=== PATIENT | female | born 1970 | race Caucasian/White ===

== ENCOUNTER 2022-05-31 20:01 | Inpatient (IN) | payer OTHER ==
[2022-05-31] MEDS ORDERED: SODIUM CHLORIDE 0.9% 1,000 ML IV STA (20:12)
--- NOTE | 2022-05-31 20:12 | ED ---
Chest Pain HPI - General Chief Complaint: Chest Pain Stated Complaint: Chest pain Time Seen by Provider: 05/31/22 20:12 Source: patient Mode of arrival: ambulatory Limitations: no limitations - Related Data Home Medications Medication Instructions Recorded Confirmed Hydrocodone/Acetaminophen [[place] 1 each PO Q6H PRN 03/30/14 08/20/15 10-325] Aspirin 162 mg PO DAILY 04/19/14 08/20/15 Baclofen [Lioresal] 04/19/14 08/20/15 Gabapentin [Neurontin] 800 mg PO TID 04/19/14 08/20/15 Ibuprofen [Motrin] 800 mg PO Q6HR PRN 04/19/14 08/20/15 traMADol HCL [Ultram ER] 100 mg PO DAILY 04/19/14 08/20/15 cloNIDine HCL [Catapres] 0.1 mg PO BID 02/09/15 08/20/15 LORazepam [Ativan] 2 mg PO BID 08/20/15 08/20/15 Previous Rx's Medication Instructions Recorded Albuterol Inhaler [Ventolin Hfa 2 puff INHALATION Q4HR PRN #1 04/19/14 Inhaler] inhaler Albuterol Inhaler [Ventolin Hfa 1 - 2 puff INHALATION Q4-6H PRN #1 02/09/15 Inhaler] inhaler Amoxicillin/Potassium Clav 1 each PO Q12HR #20 tab 02/09/15 [Augmentin 875-125 Tablet] Fluticasone Propionate [Flonase 1 - 2 spray EA NOSTRIL DAILY 5 02/09/15 Allergy Relief] Days ml Loratadine [Claritin] 10 mg PO DAILY 20 Days tab 02/09/15 Promethazine HCl/Codeine 5 ml PO Q6HR 10 Days syrup 02/09/15 [Promethazine-Codeine Syrup] Ibuprofen [Motrin] 600 mg PO Q6HR PRN #30 tab 08/20/15 Allergies Allergy/AdvReac Type Severity Reaction Status Date / Time phenazopyridine HCl Allergy Rash/Hives Verified 05/31/22 20:04 [From Pyridium] sulfamethoxazole Allergy Rash/Hives Verified 05/31/22 20:04 [From Bactrim] trimethoprim [From Bactrim] Allergy Rash/Hives Verified 05/31/22 20:04 Review of Systems ROS Statement: Those systems with pertinent positive or pertinent negative responses have been documented in the HPI. ROS Other: All systems not noted in ROS Statement are negative. EKG Findings - EKG Comments: EKG Findings:: EKG is sinus rhythm 71 TN 136 QRS 90 QTC 400 Past Medical History Past Medical History: Fibromyalgia, Hypertension, Seizure Disorder Additional Past Medical History / Comment(s): chronic neck and back pain History of Any Multi-Drug Resistant Organisms: None Reported Past Surgical History: Back Surgery Additional Past Surgical History / Comment(s): LAPAROSCOPY TO REMOVE CYST FROM OVARIES. LEEP OR CONE PROCEDURE Past Anesthesia/Blood Transfusion Reactions: No Reported Reaction Past Psychological History: Anxiety Smoking Status: Current every day smoker Past Alcohol Use History: None Reported Past Drug Use History: None Reported General Exam Limitations: no limitations Course Vital Signs 05/31/22 20:02 Temperature 98.1 F Pulse Rate 64 Respiratory 18 Rate Blood Pressure 184/98 O2 Sat by Pulse 100 Oximetry Disposition Clinical Impression: Chest pain Disposition: ADMITTED IP TO THIS [facility] Condition: Undetermined Instructions (If sedation given, give patient instructions): Chest Pain (ED) Is patient prescribed a controlled substance at d/c from ED?: No Referrals: Laila Mohr DO [Primary Care Provider] - 1-2 days
[2022-05-31 20:57] LABS: Basophils # (A) 0.1 k/uL (0-0.2); Basophils % (A) 1 %; Eosinophils # (A) 0.5 k/uL (0-0.7); Eosinophils % (A) 5 %; HCT 37.4 % (34.0-46.0); HGB 12.6 gm/dL (11.4-16.0); Lymphocytes # (A) 3.7 k/uL (1.0-4.8); Lymphocytes % (A) 39 %; MCH 32.8 pg (25.0-35.0); MCHC 33.8 g/dL (31.0-37.0); MCV 97.1 fL (80.0-100.0); Mean Platelet Volume 8.4; Monocytes # (A) 0.4 k/uL (0-1.0); Monocytes % (A) 4 %; Neutrophils # (A) 4.6 k/uL (1.3-7.7); Neutrophils % (A) 50 %; Platelet Count 420 k/uL (150-450); RBC 3.85 m/uL (3.80-5.40); WBC 9.4 k/uL (3.8-10.6)
[2022-05-31 21:11] LABS: Partial Thromboplastin Time 24.4 sec (22.0-30.0); Prothrombin Time 10.6 sec (9.0-12.0)
[2022-05-31 21:14] LABS: ALT 14 U/L (4-34); AST 22 U/L (14-36); African American GFR (CKD) >90 (>60 ml/min/1.73 sqM); Albumin 4.7 g/dL (3.5-5.0); Alkaline Phosphatase 85 U/L (38-126); Anion Gap 10 mmol/L; Blood Urea Nitrogen 20 mg/dL (7-17); Calcium 9.6 mg/dL (8.4-10.2); Carbon Dioxide 21 mmol/L (22-30); Chloride 110 mmol/L (98-107); Glucose 127 mg/dL (74-99); Lipase 35 U/L (23-300); Magnesium 1.8 mg/dL (1.6-2.3); Non-African American GFR(CKD) >90 (>60 ml/min/1.73 sqM); Potassium 3.5 mmol/L (3.5-5.1); Sodium 141 mmol/L (137-145); Total Bilirubin 0.3 mg/dL (0.2-1.3); Total Protein 7.6 g/dL (6.3-8.2)
--- NOTE | 2022-05-31 21:14 | XR ---
EXAMINATION TYPE: XR chest 1V portable DATE OF EXAM: 05/31/2022 COMPARISON: 04/19/2014 HISTORY: Chest pain TECHNIQUE: FINDINGS: Heart and mediastinum are normal. Lungs are clear. Diaphragm is normal. Bony thorax appears normal. There are chest leads. IMPRESSION: No active cardiopulmonary disease. No change.
[2022-05-31] MEDS ORDERED: NITROGLYCERIN SL TABS 0.4 MG TAB SUBLINGUAL PRN (21:45)
[2022-05-31] MEDS ORDERED: ASPIRIN 81 MG PO STA (21:45)
[2022-05-31] MEDS ORDERED: NALOXONE 0.4 MG/ML 1 ML VIAL IV PRN (21:45)
[2022-05-31] MEDS ORDERED: ONDANSETRON 4 MG/2 ML VIAL IVP PRN (21:45)
[2022-05-31] MEDS ORDERED: HEPARIN SOD,PORK IN 0.45% NACL 25,000 UNIT in 0.45% NACL 1 250ML.BAG IV SCH (21:45)
[2022-05-31] MEDS ORDERED: HEPARIN SODIUM 1,000 UN/ML (10ML VL) IV ONE (21:48)
[2022-05-31] MEDS ORDERED: MORPHINE SULFATE 4 MG/ML SYRINGE IVP STA (21:56)
[2022-05-31] MEDS: MORPHINE SULFATE 4 MG/ML SYRINGE IV PRN (22:07)
[2022-05-31] MEDS: SODIUM CHLORIDE 0.9% 1,000 ML IV SCH (22:23)
[2022-06-01] MEDS: MORPHINE SULFATE 4 MG/ML SYRINGE IV PRN ×4 (02:34→16:08)
[2022-06-01] MEDS ORDERED: HEPARIN SODIUM 1,000 UN/ML (10ML VL) IV PRN (06:16)
[2022-06-01] MEDS ORDERED: ASPIRIN 325 MG TAB PO SCH (09:00)
[2022-06-01 09:28] LABS: Chol/HDL Ratio 4.45 Ratio; LDL Cholesterol,Calculated 68.1 mg/dL (0.0-131.0)
--- NOTE | 2022-06-01 10:25 | P.CRDCN ---
History of Present Illness History of present illness: HISTORY OF PRESENTING ILLNESS Patient is pleasant 51-year-old female with history of tobacco abuse, seizures, hyperlipidemia, family history of CAD, fibromyalgia and back pains who presents secondary to episodes of chest pain over the last week. Patient states that chest pains have been intermittent and have been associated with being more active and associated with some diaphoresis and lightheadedness. She also however has a different more sharp chest pain which has been fairly constant since coming to emergency department and currently 2 out of 3 and reproducible on exam. She has been concerned as her brother who is 52 had an AK recently. She had prior stress test approximately 5-10 years ago where she had IV apparently dobutamine and had a seizure from this. EKG shows normal sinus rhythm, normal axis, no significant ST or T-wave abnormalities. D-dimer noted to be normal, troponins normal 3, proBNP 251, triglycerides 307 total cholesterol 167 LDL 68, VLDL 61, HDL 37. She was placed on a heparin drip however still having 2-3 reproducible chest pain. REVIEW OF SYSTEMS At the time of my exam: CONSTITUTIONAL: Denies fever or chills. CARDIOVASCULAR: +chest pain, +shortness of breath, no orthopnea, PND or palpitations. RESPIRATORY: Denies cough. GASTROINTESTINAL: Denies abdominal pain, diarrhea, constipation, nausea or vomiting. MUSCULOSKELETAL: Denies myalgias. NEUROLOGIC: Denies numbness, tingling or weakness. ENDOCRINE: Denies fatigue, weight change, polydipsia or polyurina. GENITOURINARY: Denies burning, hematuria or urgency with micturation. HEMATOLOGIC: Denies history of anemia or bleeding. PHYSICAL EXAMINATION Vital signs reviewed. CONSTITUTIONAL: No apparent distress. HEENT: Head is normocephalic. Pupils are equal, round. Sclerae anicteric. Mucous membranes of the mouth are moist. No JVD. No carotid bruit. CHEST EXAMINATION: Lungs are clear to auscultation. +sharp chest pain reproducible however other chest pain not HEART EXAMINATION: Regular rate and rhythm. S1, S2 heard. No murmurs, gallops or rub. ABDOMEN: Soft, nontender. Positive bowel sounds. EXTREMITIES: 2+ peripheral pulses, no lower extremity edema and no calf tenderness. NEUROLOGIC EXAMINATION: Patient is awake, alert and oriented x3. ASSESSMENT 1. 2 different types of chest pain, one being reproducible and musculoskeletal however other associated with diaphoresis and lightheadedness and worse with exertion more concerning for possible angina 2. Tobacco abuse 3. Family history of CAD 4. Hyperlipidemia, mainly VLDL elevated 5. History of seizures, apparent seizure with dobutamine. PLAN Discussed options of stress testing and patient is agreeable. Patient's current chest pain is reproducible and appears more musculoskeletal. Does have additional chest pain which is more concerning for angina and we will check Lexiscan stress test as well as echo. If unrevealing patient may be discharged home Past Medical History Past Medical History: Fibromyalgia, Hypertension, Seizure Disorder Additional Past Medical History / Comment(s): chronic neck and back pain History of Any Multi-Drug Resistant Organisms: None Reported Past Surgical History: Back Surgery Additional Past Surgical History / Comment(s): LAPAROSCOPY TO REMOVE CYST FROM OVARIES. LEEP OR CONE PROCEDURE Past Anesthesia/Blood Transfusion Reactions: No Reported Reaction Past Psychological History: Anxiety Smoking Status: Current every day smoker Past Alcohol Use History: None Reported Past Drug Use History: None Reported Medications and Allergies Home Medications Medication Instructions Recorded Confirmed Type Ibuprofen [Motrin] 800 mg PO TID PRN 04/19/14 05/31/22 History Ergocalciferol (Vitamin D2) 1,250 mcg PO WE 05/31/22 05/31/22 History [Drisdol (50,000 Iu)] Gabapentin [Neurontin] 400 mg PO QID 05/31/22 05/31/22 History HYDROcodone/APAP 7.5-325MG [[place] 1 tab PO TID 05/31/22 05/31/22 History 7.5-325] LORazepam [Ativan] 0.5 mg PO TID 05/31/22 05/31/22 History Montelukast Sodium [Singulair] 10 mg PO DAILY PRN 05/31/22 05/31/22 History Allergies Allergy/AdvReac Type Severity Reaction Status Date / Time phenazopyridine HCl Allergy Rash/Hives Verified 05/31/22 21:58 [From Pyridium] sulfamethoxazole Allergy Rash/Hives Verified 05/31/22 21:58 [From Bactrim] trimethoprim [From Bactrim] Allergy Rash/Hives Verified 05/31/22 21:58 Physical Exam Vitals: Vital Signs Temp Pulse Pulse Resp BP BP Pulse Ox 06/01/22 07:00 97.8 F 56 L 18 120/82 99 06/01/22 02:20 98.1 F 63 18 108/72 99 06/01/22 02:10 16 05/31/22 22:58 98.0 F 61 17 150/87 99 05/31/22 22:24 58 L 16 129/79 98 05/31/22 21:15 62 16 142/91 98 05/31/22 20:02 98.1 F 64 18 184/98 100 Intake and Output 05/31/22 06/01/22 06/01/22 22:59 06:59 14:59 Intake Total 69.672 9.822 Balance 69.672 9.822 Intake: Intake, IV Titration 69.672 9.822 Amount Heparin Sod,Pork in 0.45% 69.672 9.822 NaCl 25,000 unit In 0.45 % NaCl 1 250ml.bag @ 12 UNITS/KG/HR 8.709 mls/hr IV .Q24H [facility] Rx#: [id number] Other: Voiding Method Toilet # Voids 2 Weight 72.575 kg 72.575 kg Results 05/31/22 20:48 05/31/22 20:48 Cardiac Enzymes 05/31/22 05/31/22 05/31/22 Range/Units 20:48 20:48 23:26 AST 22 (14-36) U/L Troponin I <0.012 <0.012 (0.000-0.034) ng/mL 06/01/22 Range/Units 03:08 AST (14-36) U/L Troponin I <0.012 (0.000-0.034) ng/mL Coagulation 05/31/22 06/01/22 Range/Units 20:48 05:03 PT 10.6 (9.0-12.0) sec APTT 24.4 37.2 H (22.0-30.0) sec Lipids 06/01/22 Range/Units 03:08 Triglycerides 307.00 H (0.00-149.00) mg/dL Cholesterol 167.00 (0.00-200.00) mg/dL HDL Cholesterol 37.50 L (40.00-60.00) mg/dL Cholesterol/HDL Ratio 4.45 Ratio CBC 05/31/22 Range/Units 20:48 WBC 9.4 (3.8-10.6) k/uL RBC 3.85 (3.80-5.40) m/uL Hgb 12.6 (11.4-16.0) gm/dL Hct 37.4 (34.0-46.0) % Plt Count 420 (150-450) k/uL Comprehensive Metabolic Panel 05/31/22 Range/Units 20:48 Sodium 141 (137-145) mmol/L Potassium 3.5 (3.5-5.1) mmol/L Chloride 110 H (98-107) mmol/L Carbon Dioxide 21 L (22-30) mmol/L BUN 20 H (7-17) mg/dL Creatinine 0.64 (0.52-1.04) mg/dL Glucose 127 H (74-99) mg/dL Calcium 9.6 (8.4-10.2) mg/dL AST 22 (14-36) U/L ALT 14 (4-34) U/L Alkaline Phosphatase 85 (38-126) U/L Total Protein 7.6 (6.3-8.2) g/dL Albumin 4.7 (3.5-5.0) g/dL Current Medications Generic Name Dose Route Start Last Admin Trade Name Freq PRN Reason Stop Dose Admin Aspirin 325 mg 06/01/22 09:00 Aspirin 325 Mg Tab PO DAILY [facility] Atorvastatin Calcium 80 mg 06/01/22 09:00 Atorvastatin 80 Mg Tab PO DAILY [facility] Heparin Sodium (Porcine) 0 unit 06/01/22 06:16 06/01/22 07:24 Heparin Sodium 1,000 Un/Ml (10ml Vl) IV 1,815 unit PER PROTOCOL PRN Administration Low PTT Protocol Sodium Chloride 1,000 mls @ 20 mls/hr 05/31/22 21:45 05/31/22 22:23 Saline 0.9% IV 20 mls/hr .Q24H [facility] Administration Heparin Sodium/Sodium Chloride 250 mls @ 8.709 mls/hr 05/31/22 21:45 06/01/22 07:16 25,000 unit/ Sodium Chloride IV 16 units/kg/hr .Q24H [facility] 11.612 mls/hr Titration Protocol 12 UNITS/KG/HR Morphine Sulfate 4 mg 05/31/22 21:45 06/01/22 06:20 Morphine Sulfate 4 Mg/Ml Syringe IV 4 mg Q4HR PRN Administration Severe Pain Naloxone HCl 0.2 mg 05/31/22 21:45 Naloxone 0.4 Mg/Ml 1 Ml Vial IV Q2M PRN Opioid Reversal Nitroglycerin 0.4 mg 05/31/22 21:45 Nitroglycerin Sl Tabs 0.4 Mg Tab SUBLINGUAL Q5M PRN Chest Pain Ondansetron HCl 4 mg 05/31/22 21:45 Ondansetron 4 Mg/2 Ml Vial IVP Q8HR PRN Nausea And Vomiting Intake and Output 05/31/22 06/01/22 06/01/22 22:59 06:59 14:59 Intake Total 69.672 9.822 Balance 69.672 9.822 Intake: Intake, IV Titration 69.672 9.822 Amount Heparin Sod,Pork in 0.45% 69.672 9.822 NaCl 25,000 unit In 0.45 % NaCl 1 250ml.bag @ 12 UNITS/KG/HR 8.709 mls/hr IV .Q24H [facility] Rx#: [id number] Other: Voiding Method Toilet # Voids 2 Weight 72.575 kg 72.575 kg 05/31/22 20:48 05/31/22 20:48
[2022-06-01] MEDS: ATORVASTATIN 80 MG TAB PO SCH (10:56)
[2022-06-01] MEDS ORDERED: MONTELUKAST 10 MG TAB PO PRN (12:55)
[2022-06-01] MEDS ORDERED: IBUPROFEN 800 MG TAB PO PRN (12:55)
[2022-06-01] MEDS ORDERED: RX INFO: IV CONTRAST WAS GIVEN 1 EACH MISC MISCELLANE PRN (13:05)
[2022-06-01] MEDS: GABAPENTIN 400 MG CAP PO SCH ×3 (13:50→21:52)
[2022-06-01] MEDS: SODIUM CHLORIDE 0.9% 1,000 ML IV SCH (13:51)
--- NOTE | 2022-06-01 14:19 | HP ---
HISTORY AND PHYSICAL DATE OF SERVICE: 06/01/2022 CHIEF COMPLAINT: Chest pain. HISTORY OF PRESENT ILLNESS: This 51-year-old woman with a past medical history of fibromyalgia and hypertension, being followed by Dr. Su in the outpatient setting, had complaints of chest pain. The pain was rather sharp in character, radiating to the back. Patient also complains of a constricting type of pain. Cardiology saw the patient and recommended evaluation, including stress test tomorrow. No fever. No cough. No sputum. The triglycerides are elevated at 307. PAST MEDICAL HISTORY: Reviewed; includes hypertension and fibromyalgia. HOME MEDICATIONS: Reviewed. They include Singulair. Doses and the rest of the medications are noted. ALLERGIES: Reviewed. They include PYRIDIUM. FAMILY HISTORY: No history of heart disease or strokes in the family. SOCIAL HISTORY: Current smoking. REVIEW OF SYSTEMS: Fourteen-point review of systems negative except as mentioned earlier. PHYSICAL EXAMINATION: Pulse is 56. Blood pressure 120/82, respirations 18. HEENT: Conjunctivae normal. NECK: No jugular venous distention. CARDIOVASCULAR: S1, S2 muffled. RESPIRATION: Breath sounds diminished at the bases. No rhonchi. No crackles. ABDOMEN: Soft, nontender. No mass palpable. LEGS: No edema. No swelling. NERVOUS SYSTEM: Higher functions as mentioned earlier. Moves all 4 limbs. LYMPHATICS: No lymph node palpable in neck, axillae or groin. SKIN: No ulcer, rash, bleeding. JOINTS: No active deforming arthropathy. LABS: CBC within normal limits. Other labs are noted. Otherwise, chest x-ray personally reviewed; showed no active disease. ASSESSMENT: 1. Chest pain for evaluation; possible unstable angina. 2. Fibromyalgia. 3. Hypertension. RECOMMENDATIONS AND DISCUSSION: I recommend to continue current medications, continue with the monitoring, symptomatic treatment. Cardiology is following the patient closely. Troponins are negative. The patient still has some persistent chest pain. D-dimer is negative, but I would recommend a CT angio of the chest to rule out any aortic abnormalities. Prognosis is guarded. Further recommendations to follow. MMODL / IJN: [id number] /
[2022-06-01] MEDS: LORazepam 0.5 MG TAB PO SCH ×2 (14:20→21:52)
--- NOTE | 2022-06-01 15:45 | CT ---
EXAMINATION TYPE: CT angio thor/abd pel aorta DATE OF EXAM: 06/01/2022 COMPARISON: 03/30/2014 HISTORY: r/o dissection CT DLP: 1282.1 mGycm Automated exposure control for dose reduction was used. CONTRAST: Performed with IV Contrast, patient injected with 100 mL of Isovue 370. Images obtained from the thoracic inlet to the mid pelvis without contrast. Images obtained from the thoracic inlet to the floor the pelvis with the IV contrast. There are Three-D postprocessed images. The lungs are clear of consolidation. There is some mild fibrotic changes and subsegmental atelectasi s at the lung bases. Heart size is normal. No pericardial effusion. There is no mediastinal adenopath y. There are no hilar masses. Liver spleen and stomach pancreas and gallbladder appear intact. The bi le ducts are not dilated. There is no adrenal mass. Kidneys show satisfactory contrast opacification. Kidneys have normal size. No hydronephrosis. No retroperitoneal adenopathy. Bladder distends smoothl y. Uterus is anteverted. No pelvic mass. No inguinal hernia. No free fluid in the pelvis. There is no mesenteric edema. There is no ascites or free air. No sign of a bowel obstruction. There are clips a pparently from appendectomy. The thoracic aorta is intact. No evidence of filling defect in the pulmonary arteries. Abdominal aorta appears normal. There is arterial flow in the celiac artery and superior mesenteric a rtery. There is arterial flow in the renal and iliac and femoral arteries. No evidence of stenosis. N o evidence of arterial aneurysm or dissection. The thoracic and lumbar spine appear intact. No compression fracture. There is some mild spurring in the lower thoracic spine. There is vacuum disc at L5-S1. The sternum is intact. Bony pelvis is intact . IMPRESSION: Negative CT angiogram of the chest abdomen pelvis. No evidence of aneurysm or dissection. No evidence of pulmonary embolism.
[2022-06-01] MEDS: HYDROcodone/APAP 7.5-325MG 1 EACH TAB PO SCH ×2 (17:22→21:52)
[2022-06-02] MEDS ORDERED: CAFFEINE CITRATE 60 MG/3 ML VIAL IV PRN (07:00)
[2022-06-02] MEDS ORDERED: AMINOPHYLLINE 500 MG/20 ML VIAL IV PRN (07:00)
[2022-06-02] MEDS ORDERED: REGADENOSON 0.4 MG/5 ML SYRINGE IV PRN (07:00)
[2022-06-02] MEDS ORDERED: REGADENOSON 0.4 MG/5 ML SYRINGE IV ONE (08:00)
[2022-06-02 09:14] LABS: Basophils # (A) 0.06 X 10*3/uL (0.00-0.10); Basophils % (A) 0.8 %; Eosinophils # (A) 0.43 X 10*3/uL (0.04-0.35); Eosinophils % (A) 5.5 %; HCT 33.9 % (37.2-46.3); HGB 10.9 g/dL (12.0-15.0); Immature Grans, Automated 0.3 %; Lymphocytes # (A) 2.84 X 10*3/uL (0.90-5.00); Lymphocytes % (A) 36.2 %; MCHC 32.2 g/dL (32.0-37.0); MCV 99.4 fL (80.0-97.0); Mean Platelet Volume 10.9 fL (9.5-12.2); Monocytes # (A) 0.53 X 10*3/uL (0.20-1.00); Monocytes % (A) 6.8 %; NRBC Per 100 WBC 0 /100 WBCS (0.0-0.0); Neutrophils # (A) 3.97 X 10*3/uL (1.80-7.70); Neutrophils % (A) 50.4 %; Platelet Count 307 X 10*3/uL (140-440); RBC 3.41 X 10*6/uL (4.10-5.20); RDW 13.2 % (11.5-14.5); WBC 7.85 X 10*3/uL (4.50-10.00)
[2022-06-02 09:39] LABS: African American GFR (CKD) 141.7 (60.0-200.0); Anion Gap 9.1 mmol/L (10.00-18.00); BUN/Creat Ratio 33.75 Ratio (12.00-20.00); Blood Urea Nitrogen 13.5 mg/dL (9.0-27.0); Calcium 8.5 mg/dL (8.7-10.3); Carbon Dioxide 20.9 mmol/L (20.0-27.5); Non-African American GFR(CKD) 122.3 (60.0-200.0)
--- NOTE | 2022-06-02 10:31 | P.PN ---
Subjective Progress Note Date: 06/02/22 HISTORY OF PRESENT ILLNESS: Patient is pleasant 51-year-old female with history of tobacco abuse, seizures, hyperlipidemia, family history of CAD, fibromyalgia and back pains who presents secondary to episodes of chest pain over the last week. Patient states that chest pains have been intermittent and have been associated with being more active and associated with some diaphoresis and lightheadedness. She also however has a different more sharp chest pain which has been fairly constant since coming to emergency department and currently 2 out of 3 and reproducible on exam. She has been concerned as her brother who is 52 had an [place] recently. She had prior stress test approximately 5-10 years ago where she had IV apparently dobutamine and had a seizure from this. EKG shows normal sinus rhythm, normal axis, no significant ST or T-wave abnormalities. D-dimer noted to be normal, troponins normal 3, proBNP 251, triglycerides 307 total cholesterol 167 LDL 68, VLDL 61, HDL 37. She was placed on a heparin drip however still having 2-3 reproducible chest pain. 06/02/2022 Patient examined this morning the bedside. Patient denies any chest pain or pressure this morning. She denies shortness of breath. Vital signs are stable. PHYSICAL EXAM: VITAL SIGNS: Reviewed. GENERAL: Well-developed in no acute distress. NECK: Supple. No JVD or thyromegaly LUNGS: Respirations even and unlabored. Lungs essentially clear to auscultation bilaterally. HEART: Regular rate and rhythm. S1 and S2 heard. EXTREMITIES: Normal range of motion. No clubbing or cyanosis. Peripheral pulses intact. No lower extremity edema ASSESSMENT: 1. 2 different types of chest pain, one being reproducible and musculoskeletal however other associated with diaphoresis and lightheadedness and worse with exertion more concerning for possible angina 2. Tobacco abuse 3. Family history of CAD 4. Hyperlipidemia, mainly VLDL elevated 5. History of seizures, apparent seizure with dobutamine. PLAN: Continue current cardiac medications 2-D echo ordered. Await results Patient to undergo Lexiscan stress test today. If negative, she may be discharged home from a cardiac standpoint Nurse practitioner note has been reviewed by physician. Signing provider agrees with the documented findings, assessment, and plan of care. Objective - Vital Signs Vital signs: Vital Signs Temp 98.2 F 06/02/22 07:00 Pulse 56 L 06/02/22 07:00 Resp 18 06/02/22 07:00 BP 125/83 06/02/22 07:00 Pulse Ox 99 06/02/22 07:00 FiO2 Intake & Output 06/01/22 06/02/22 06/02/22 18:59 06:59 18:59 Intake Total 152.822 Balance 152.822 Intake: Intake, IV Titration 9.822 Amount Heparin Sod,Pork in 0.45% 9.822 NaCl 25,000 unit In 0.45 % NaCl 1 250ml.bag @ 12 UNITS/KG/HR 8.709 mls/hr IV .Q24H [facility] Rx#: [id number] Oral 143 Other: Voiding Method Toilet # Voids 3 2 - Labs CBC & Chem 7: 06/02/22 03:39 06/02/22 03:39 Labs: Abnormal Lab Results - Last 24 Hours (Table) 06/01/22 06/02/22 06/02/22 Range/Units 12:00 03:39 03:39 RBC 3.41 L (4.10-5.20) X 10*6/uL Hgb 10.9 L (12.0-15.0) g/dL Hct 33.9 L (37.2-46.3) % MCV 99.4 H (80.0-97.0) fL Eosinophils # 0.43 H (0.04-0.35) X 10*3/uL APTT 38.7 H (22.0-30.0) sec Chloride 110 H (96-109) mmol/L Anion Gap 9.10 L (10.00-18.00) mmol/L Creatinine 0.4 L (0.6-1.5) mg/dL BUN/Creatinine Ratio 33.75 H (12.00-20.00) Ratio Glucose 123 H (70-110) mg/dL Calcium 8.5 L (8.7-10.3) mg/dL
[2022-06-02] MEDS: ASPIRIN 81 MG PO SCH (11:13)
[2022-06-02] MEDS: LORazepam 0.5 MG TAB PO SCH ×3 (11:13→21:43)
[2022-06-02] MEDS: HYDROcodone/APAP 7.5-325MG 1 EACH TAB PO SCH ×3 (11:13→21:41)
[2022-06-02] MEDS: ATORVASTATIN 80 MG TAB PO SCH (11:13)
[2022-06-02] MEDS: GABAPENTIN 400 MG CAP PO SCH ×4 (11:13→21:43)
--- NOTE | 2022-06-02 11:14 | NM ---
EXAMINATION TYPE: NM stress lexiscan cardiolite DATE OF EXAM: 06/02/2022 COMPARISON: NONE HISTORY: Chest pain TECHNIQUE: After the intravenous administration of 9.5 mCi Tc 99m Sestamibi - Cardiolite resting SPE CT images acquired 45 minutes post injection. The patient received 0.4mg Lexiscan, 25.5 mCi Tc 99m Sestamibi - Stress images obtained [address] injection FINDINGS: Review of stress and rest SPECT images demonstrates mild decreased uptake along the anterior wall of left ventricle on stress and rest images. Question some mild decreased uptake along the anterior wall on stress as compared to rest images additionally Gated analysis shows normal wall motion with an es timated left ventricular ejection fraction of 73 %. IMPRESSION: Difficult to exclude pharmacologically-induced left ventricular myocardial ischemia Consider echocard iographic correlation for elevated ejection fraction
[2022-06-02] MEDS ORDERED: NITROGLYCERIN SL TABS 0.4 MG TAB SUBLINGUAL PRN (11:25)
[2022-06-02] MEDS ORDERED: ALPRAZolam 0.25 MG TAB PO PRN (11:25)
[2022-06-02] MEDS ORDERED: ALPRAZolam 0.5 MG TAB PO PRN (11:25)
--- NOTE | 2022-06-02 13:43 | CA ---
Lexiscan Nuclear Stress Test Report Name: Shelbie Rodrigues Exam Date: 06/02/2022 09:46 Exam Location: [facility] Ht (in): 62 Wt (lb): 160 BSA: 1.74 Ordering Phys: Chris Cox DO Referring Phys: MILENA, Technologist: Johnnie Fagan Age: 51 Gender: F : 1970 Procedure CPT: Indications: Reflex order-Stress test ICD-10 Codes: Patient History: Chest pain, Short of breath and Palpitations Medications: Meds past 24 hrs: Pretest Chest Pain: STRESS TEST Lexiscan Protocol Exercise Duration (min:sec): 02:[address] Depressions (mm): Angina Score: Hernandez Score: Resting HR (bpm): 57 Peak HR (bpm): 104 Resting BP (mmHg): 140 / 78 Peak BP (mmHg): 136 / 67 MPHR: 171 Target HR: 145 % MPHR: 61 METS: 1.0 Total Dose: Peak Dose: Atropine: Double Product: 12927 BP Response: Stress Termination: Infusion complete Stress Symptoms: Dyspnea that reslolved quickly. Stress Summary: ECG ANALYSIS Resting ECG: Stress ECG: CONCLUSIONS Lexiscan Cardiolite stress test Baseline heart rate 57 beats a minute, Baseline blood pressure 140/78 mmHg No ECG was for ischemia No significant change in heart rate and blood pressure No arrhythmias Nuclear portion will be reported separately Dr. Liu Allen MD (Electronically Signed) Final Date: 02 June 2022 13:42
[2022-06-02] MEDS: methylPREDNISolone SOD SUCCI 125 MG/2 ML VIAL IV ONE ×2 (14:15→14:18)
--- NOTE | 2022-06-02 15:59 | P.PN ---
Subjective Progress Note Date: 06/02/22 This is a 51-year-old female admitted with chest pain, evaluated by cardiology and scheduled for Lexiscan stress test today. Currently reporting fluctuating midsternal chest discomfort, with decreased intensity, not worsened by deep breathing or cough. Reports this is been ongoing off and on 1 week, history of pneumonias.Afebrile, normal WBC. Thoracic aorta CT reported no evidence of PE, negative CT angiogram of the chest abdomen and pelvis with no evidence of aneurysm or dissection. Objective - Vital Signs Vital signs: Vital Signs Temp 98.2 F 06/02/22 07:00 Pulse 56 L 06/02/22 07:00 Resp 18 06/02/22 07:00 BP 125/83 06/02/22 07:00 Pulse Ox 99 06/02/22 07:00 FiO2 Intake & Output 06/01/22 06/02/22 06/02/22 18:59 06:59 18:59 Intake Total 152.822 120 Balance 152.822 120 Intake: Intake, IV Titration 9.822 Amount Heparin Sod,Pork in 0.45% 9.822 NaCl 25,000 unit In 0.45 % NaCl 1 250ml.bag @ 12 UNITS/KG/HR 8.709 mls/hr IV .Q24H [facility] Rx#: [id number] Oral 143 120 Other: Voiding Method Toilet # Voids 3 2 2 - Exam PHYSICAL EXAM: VITAL SIGNS: As above GENERAL: Alert and oriented 3, Sitting up in bed, no acute distress HEENT: Conjunctivae normal. eyes normal. NECK: Supple, No JVD. CARDIOVASCULAR: S1, S2 regular.. No murmur RESPIRATION: Breath sounds diminished in the bases. No rhonchi or crackles. ABDOMEN: Soft, nontender . No guarding. no masses palpable. Bowel sounds heard. LEGS: No edema. no swelling NERVOUS SYSTEM: Cranial N 2-12 grossly normal. No focal deficits. Strength and sensation grossly intact.. Skin: Warm and dry, no rash - Labs CBC & Chem 7: 06/02/22 03:39 06/02/22 03:39 Labs: Abnormal Lab Results - Last 24 Hours (Table) 06/02/22 06/02/22 Range/Units 03:39 03:39 RBC 3.41 L (4.10-5.20) X 10*6/uL Hgb 10.9 L (12.0-15.0) g/dL Hct 33.9 L (37.2-46.3) % MCV 99.4 H (80.0-97.0) fL Eosinophils # 0.43 H (0.04-0.35) X 10*3/uL Chloride 110 H (96-109) mmol/L Anion Gap 9.10 L (10.00-18.00) mmol/L Creatinine 0.4 L (0.6-1.5) mg/dL BUN/Creatinine Ratio 33.75 H (12.00-20.00) Ratio Glucose 123 H (70-110) mg/dL Calcium 8.5 L (8.7-10.3) mg/dL Assessment and Plan Assessment: Chest pain, possible unstable angina Possible recent viral bronchitis one week ago, with residual, possible pleurisy Hypertension Fibromyalgia Plan: Continue on current medication regime ,monitoring and symptomatic treatment. Echo/ Lexiscan stress test pending. If negative and cleared by cardiology for discharge, will discharge patient home today. The impression and plan of care has been dictated as directed. : I performed a history and examination of this patient, discussed the same with the dictator. I agree with the dictator's note ,documented as a scribe. Any additional findings or plans will be noted.
[2022-06-02] MEDS: SODIUM CHLORIDE 0.9% 1,000 ML IV SCH ×2 (16:43→23:38)
--- NOTE | 2022-06-02 17:32 | CA ---
Transthoracic Echo Report Name: Shelbie Rodrigues Age: 51 Gender: F : 1970 Exam Date: 06/02/2022 12:03 Exam Location: [facility] Ht (in): 62 Wt (lb): 160 Ordering Physician: Chris Cox DO ([email or web address]) Attending/Referring Phys: Creasing Machine Operator Jackie Valladares RDCS Procedure CPT: Indications: re: CP Cardiac Hx: Technical Quality: Fair Contrast 1: Total Dose (mL): Contrast 2: Total Dose (mL): MEASUREMENTS (Male / Female) Normal Values 2D ECHO LV Diastolic Diameter PLAX 4.5 cm 4.2 - 5.9 / 3.9 - 5.3 cm LV Systolic Diameter PLAX 3.0 cm IVS Diastolic Thickness 1.5 cm 0.6 - 1.0 / 0.6 - 0.9 cm LVPW Diastolic Thickness 1.3 cm 0.6 - 1.0 / 0.6 - 0.9 cm LV Relative Wall Thickness 0.6 RV Internal Dim ED PLAX 2.8 cm LA Volume 51.2 cm??? 18 - 58 / 22 - 52 cm??? M-MODE Aortic Root Diameter MM 2.9 cm LA Systolic Diameter MM 3.7 cm LA Ao Ratio MM 1.3 AV Cusp Separation MM 1.8 cm DOPPLER AV Peak Velocity 141.9 cm/s AV Peak Gradient 8.1 mmHg LVOT Peak Velocity 129.8 cm/s LVOT Peak Gradient 6.7 mmHg MV Area PHT 2.8 cm??? Mitral E Point Velocity 114.2 cm/s Mitral A Point Velocity 68.0 cm/s Mitral E to A Ratio 1.7 MV Deceleration Time 275.1 ms TR Peak Velocity 283.9 cm/s TR Peak Gradient 32.2 mmHg Right Ventricular Systolic Press 36.8 mmHg FINDINGS Left Ventricle Moderately increased left ventricular wall thickness. Normal left ventricular systolic function with no obvious regional wall motion abnormalities. Left ventricular ejection fraction is estimated at 55-60 %. Right Ventricle Normal right ventricular size and function. Right Atrium Normal right atrial size. Left Atrium Mildly increased left atrial area. Mitral Valve Structurally normal mitral valve. No mitral stenosis, regurgitation or prolapse. Aortic Valve Trileaflet aortic valve. No aortic valve stenosis or regurgitation. Tricuspid Valve Structurally normal tricuspid valve. Mild tricuspid regurgitation. Pulmonic Valve Structurally normal pulmonic valve. Trace pulmonic regurgitation. Pericardium No pericardial effusion. Aorta Normal size aortic root and proximal ascending aorta. CONCLUSIONS LVH with preserved systolic function ejection fraction greater than 55% Previewed by: Dr. Liu Allen MD (Electronically Signed) Final Date: 02 June 2022 17:31
[2022-06-02] MEDS: MORPHINE SULFATE 4 MG/ML SYRINGE IV PRN ×2 (18:15→22:34)
[2022-06-02] MEDS: SODIUM CHLORIDE 0.9% 1,000 ML in EMPTY BAG 1 BAG IV SCH (21:43)
[2022-06-03] MEDS: SODIUM CHLORIDE 0.9% 1,000 ML in EMPTY BAG 1 BAG IV SCH ×2 (02:28→17:18)
[2022-06-03] MEDS ORDERED: ASPIRIN 325 MG TAB PO ONE (05:00)
[2022-06-03] MEDS ORDERED: ATORVASTATIN 80 MG TAB PO ONE (05:00)
[2022-06-03] MEDS: ASPIRIN 81 MG PO SCH (07:00)
[2022-06-03] MEDS ORDERED: HEPARIN SODIUM,PORCINE 2,500 UNIT in SODIUM CHLORIDE 0.9% 250 ML IRRIGATION PRN (07:00)
[2022-06-03] MEDS: ATORVASTATIN 80 MG TAB PO SCH (07:00)
[2022-06-03] MEDS ORDERED: HEPARIN SODIUM,PORCINE 10,000 UNIT in SODIUM CHLORIDE 0.9% 1,000 ML IRRIGATION PRN (07:00)
[2022-06-03] MEDS ORDERED: VERAPAMIL 2.5 MG/ML 2 ML AMP ONE (07:14)
[2022-06-03] MEDS ORDERED: HEPARIN SODIUM 1,000 UN/ML (10ML VL) ONE (07:29)
[2022-06-03] MEDS ORDERED: fentaNYL (PF) 50 MCG/ML 2 ML AMP ONE (07:41)
[2022-06-03] MEDS ORDERED: VERAPAMIL SYRINGE (5 MG/10 ML) INTRAARTER ONE (07:43)
[2022-06-03] MEDS ORDERED: MIDAZOLAM 2 MG/2 ML VIAL IV ONE ×3 (07:43→07:53)
[2022-06-03] MEDS ORDERED: fentaNYL (PF) 50 MCG/ML 2 ML AMP IV ONE ×3 (07:43→08:09)
[2022-06-03] MEDS ORDERED: LIDOCAINE 1% INJ 10MG/ML (5 ML VIAL-PF) SQ ONE (07:43)
[2022-06-03] MEDS ORDERED: HEPARIN SODIUM 1,000 UN/ML (10ML VL) IV ONE (07:51)
[2022-06-03] MEDS ORDERED: MIDAZOLAM HCL 10 MG/10 ML VIAL IV ONE (08:09)
[2022-06-03] MEDS ORDERED: ADENOSINE 90 MG in SODIUM CHLORIDE 0.9% 60 ML IVP ONE (08:27)
[2022-06-03] MEDS ORDERED: IV FLUID CONTINUATION 1,000 ML IV ONE (08:28)
[2022-06-03] MEDS ORDERED: IOPAMIDOL-370 125ML BTL INJ ONE (08:29)
[2022-06-03] MEDS ORDERED: CLOPIDOGREL 75 MG TAB ONE (08:33)
[2022-06-03] MEDS ORDERED: CLOPIDOGREL 75 MG TAB PO ONE (08:34)
[2022-06-03] MEDS: HYDROcodone/APAP 7.5-325MG 1 EACH TAB PO SCH ×2 (10:13→17:20)
[2022-06-03] MEDS: GABAPENTIN 400 MG CAP PO SCH ×2 (10:13→15:11)
[2022-06-03] MEDS: LORazepam 0.5 MG TAB PO SCH ×2 (10:13→16:37)
[2022-06-03] MEDS ORDERED: METOPROLOL SUCCINATE (ER) 25 MG TAB.ER.24H PO SCH (10:15)
[2022-06-03 12:00] VITALS: RESP 18
[2022-06-03] MEDS: MORPHINE SULFATE 4 MG/ML SYRINGE IV PRN (15:11)
[2022-06-03 16:00] VITALS: TEMP 98.6
--- NOTE | 2022-06-03 16:02 | P.DS ---
Providers Date of admission: 06/02/22 16:15 Expected date of discharge: 06/03/22 Attending physician: Sawyer Su MD Primary care physician: Laila Mohr [facility] Course: Final Diagnoses: Chest pain, possible unstable angina, cardiology following Possible recent viral bronchitis one week ago, with residual, possible pleurisy Hypertension Fibromyalgia Hospital course:This is a 51-year-old female admitted with chest pain, evaluated by cardiology and scheduled for Lexiscan stress test today. Currently reporting fluctuating midsternal chest discomfort, with decreased intensity, not worsened by deep breathing or cough. Reports this is been ongoing off and on 1 week, history of pneumonias.Afebrile, normal WBC. Thoracic aorta CT reported no evidence of PE, negative CT angiogram of the chest abdomen and pelvis with no evidence of aneurysm or dissection. Evaluated by cardiology,completed echo and Lexiscan stress test.Echo reported LVH with preserved systolic function greater than 55%.Lexiscan reported difficult to exclude pharmacologically-induced left ventricular myocardial ischemia and patient is scheduled for cardiac catheterization this morning. Patient will be discharged home today pending cardiac catheterization results, final DC recommendations and clearance per cardiology. The impression and plan of care has been dictated as directed. DrBarry: I performed a history and examination of this patient, discussed the same with the dictator. I agree with the dictator's note ,documented as a scribe. Any additional findings or plans will be noted. Patient Condition at Discharge: Stable Plan - Discharge Summary Discharge Rx Participant: No New Discharge Prescriptions: New Aspirin 81 mg PO DAILY #90 tab Metoprolol Succinate (ER) [Toprol XL] 25 mg PO DAILY #90 tab Atorvastatin Calcium [Lipitor] 80 mg PO HS #90 tablet Clopidogrel [Plavix] 75 mg PO DAILY #90 tab Continue Ibuprofen [Motrin] 800 mg PO TID PRN PRN Reason: Pain Ergocalciferol (Vitamin D2) [Drisdol (50,000 Iu)] 1,250 mcg PO WE Montelukast Sodium [Singulair] 10 mg PO DAILY PRN PRN Reason: Allergy Symptoms Gabapentin [Neurontin] 400 mg PO QID LORazepam [Ativan] 0.5 mg PO TID HYDROcodone/APAP 7.5-325MG [[place] 7.5-325] 1 tab PO TID Discharge Medication List Ibuprofen [Motrin] 800 mg PO TID PRN 04/19/14 [History] Ergocalciferol (Vitamin D2) [Drisdol (50,000 Iu)] 1,250 mcg PO WE 05/31/22 [History] Gabapentin [Neurontin] 400 mg PO QID 05/31/22 [History] HYDROcodone/APAP 7.5-325MG [[place] 7.5-325] 1 tab PO TID 05/31/22 [History] LORazepam [Ativan] 0.5 mg PO TID 05/31/22 [History] Montelukast Sodium [Singulair] 10 mg PO DAILY PRN 05/31/22 [History] Aspirin 81 mg PO DAILY #90 tab 06/03/22 [Rx] Atorvastatin Calcium [Lipitor] 80 mg PO HS #90 tablet 06/03/22 [Rx] Clopidogrel [Plavix] 75 mg PO DAILY #90 tab 06/03/22 [Rx] Metoprolol Succinate (ER) [Toprol XL] 25 mg PO DAILY #90 tab 06/03/22 [Rx] Follow up Appointment(s)/Referral(s): Sawyer Su MD [STAFF PHYSICIAN] - 1 Week Chris Cox DO [STAFF PHYSICIAN] - 1 Week Patient Instructions/Handouts: Chest Pain (ED)
[2022-06-03 16:38] VITALS: BP 135/88; PULSE 66
[2022-06-03] MEDS: SODIUM CHLORIDE 0.9% 1,000 ML IV SCH (17:20)
[2022-06-04] MEDS ORDERED: CLOPIDOGREL 75 MG TAB PO SCH (09:00)
--- NOTE | 2022-06-04 11:05 | P.CARDCATH ---
Description of Procedure: PROCEDURES PERFORMED: Left heart catheterization, bilateral coronary angiography, iFR LAD, iFR and FFR circumflex DATE OF PROCEDURE: 06/03/2022 INDICATION: Abnormal stress test, chest pain HISTORY: Is pleasant 51-year-old female with tobacco abuse and prior history of TIA who has been having person chest pain over the last 3 weeks occasionally occurring with exertion as well as when she is upset. Stress test showed ischemia in the anterior distribution and heart catheterization was recommended. CONSENT:I have discussed the risks, benefits and alternative therapies for the above-mentioned procedure and for both sedation/analgesia as well as necessary blood product administration, if indicated, as they pertain to this patient. The patient has indicated understanding and acceptance of the risks and procedures discussed. PROCEDURE: After the risks, benefits and alternatives of the above mentioned procedure explained in detail with the patient, informed consent was obtained. Patient was taken to the catheterization lab and prepped and draped in usual fashion. 1% lidocaine was used to anesthetize the right radial artery. A 6- [place] sheath was placed in the right radial artery using modified Seldinger technique. Left coronary angiography was performed with a 5-[place] JL 3.5 catheter and right coronary angiography was performed with a 5-[place] JR5 catheter in various views. A 5-[place] FR5 catheter was inserted into the left ventricle and pressure measurements were obtained. Decision was made to perform iFR/ FFR of LAD given perfusion defect in the anterior distribution as well as circumflex. A 6FR CLS 3.5 guide was used to engage the left main. A 0.014 pressure wire was advanced into the left main and normalized. The pressure wire was advanced into the mid LAD, 1 cm past the lesion and iFR measurement was obtained which was 0.95. Next the wire was directed into the circumflex and placed 1 cm distal to the circumflex lesion. iFR was performed and was 0.95. FFR was then performed and was normal at 0.95. The wire was removed. The right radial sheath was removed and a TR band was placed with hemostasis achieved. The patient tolerated the procedure well. Patient was transported back to the post catheterization holding area in stable condition. Conscious Sedation: Patient was monitored under the direct supervision of vision of myself for conscious sedation using Versed and fentanyl for a total duration of 47 minutes HEMODYNAMICS: Ao: 142/81 LV: 137/3, LVEDP 19mmHg SELECTIVE CORONARY ARTERIOGRAPHY: LEFT MAIN: The left main is a large caliber vessel which bifurcates into the LAD and circumflex. There is no significant stenosis. LEFT ANTERIOR DESCENDING CORONARY ARTERY: LAD is a large caliber vessel which wraps around to the apex. There is a longer tubular 50% stenosis extending from diagonal 1 to diagonal 2. LEFT CIRCUMFLEX CORONARY ARTERY: Left circumflex is a moderate caliber vessel. There is a mid circumflex 60-70% stenosis just after the OM1 branch. RIGHT CORONARY ARTERY: The right coronary artery is a large caliber vessel which gives off a PDA and PLV branch and is the dominant vessel. There is no significant stenosis. FINAL IMPRESSION: 1. CAD as described above with 60-70% circumflex stenosis as well as mid LAD 50%. 2. iFR LAD, iFR/FFR of circumflex normal at 0.93 and 0.95 respectively 3. Mildly elevated left sided filling pressures PLAN: 1. Aggressive risk factor modification per most recent ACC/AHA guidelines. 2. Symptoms of new chest pain over the last 3 weeks concerning for unstable angina with likely recanalization of circumlfex lesion with iFR normal. No current indication for stenting and would treat medically. Dual antiplatelets for unstable angina and antianginals/ BBlocker. If continued angina would consider PCI.
== END 2022-06-03 16:48 | disposition home or self-care (01) | DRG 287 ==
LOC: EC 20:01 → 6NMEDSUR 21:45 → OBSVTOIN 06-02 16:15
PROVIDERS: ADMIT Family Medicine; ATTEND Family Medicine
PROC: B2111ZZ Fluoroscopy of Multiple Coronary Arteries using Low Osmolar Contrast (ICD-10-PCS; principal; 2022-06-03 07:30)
PROC: 4A023N7 Measurement of Cardiac Sampling and Pressure, Left Heart, Percutaneous Approach (ICD-10-PCS; principal; 2022-06-03 07:30)
DX: I25.110 Atherosclerotic heart disease of native coronary artery with unstable angina pectoris (principal); I10 Essential (primary) hypertension; E78.1 Pure hyperglyceridemia; E78.5 Hyperlipidemia, unspecified; F17.210 Nicotine dependence, cigarettes, uncomplicated; G89.29 Other chronic pain; M54.2 Cervicalgia; J20.8 Acute bronchitis due to other specified organisms; M54.9 Dorsalgia, unspecified; G40.909 Epilepsy, unspecified, not intractable, without status epilepticus; M79.7 Fibromyalgia; Z79.82 Long term (current) use of aspirin; Z79.899 Other long term (current) drug therapy; Z82.49 Family history of ischemic heart disease and other diseases of the circulatory system; Z88.2 Allergy status to sulfonamides
CPT/HCPCS: 36415; 71045; 71275; 74174; 78452; 80048; 80053; 80061; 83690; 83735; 83880; 84484; 85025; 85379; 85610; 85730; 93005; 93017; 93306; 93458; 93571; 96361; 96365; 96375; 99285

== ENCOUNTER 2023-09-04 15:48 | Emergency (ER) | payer OTHER ==
[2023-09-04 16:43] VITALS: BP 170/102; PULSE 100; RESP 18; TEMP 98.6
[2023-09-04] MEDS ORDERED: KETOROLAC 15 MG/ML 1 ML VIAL IM STA (16:53)
[2023-09-04] MEDS ORDERED: BENZOCAINE SPRAY 1 CAN TOPICAL STA (17:18)
--- NOTE | 2023-09-04 17:48 | ED ---
Skin/Abscess/FB HPI - General Chief complaint: Skin/Abscess/Foreign Body Stated complaint: left eye/face pain Time Seen by Provider: 09/04/23 16:41 Source: patient, RN notes reviewed Mode of arrival: ambulatory Limitations: no limitations - History of Present Illness Initial comments: Patient is a 52-year-old female presented ER with chief complaint of a mild abscess. Patient states she has been congested with a cough for the past week. Patient states she noticed a mild abscess today. Patient has multiple broken teeth. Patient states she takes prescribed [place] for pain at home and it is not touching her current pain. Patient denies any fevers, chills/night sweats. - Related Data Home Medications Medication Instructions Recorded Confirmed Ibuprofen [Motrin] 800 mg PO TID PRN 04/19/14 05/31/22 Ergocalciferol (Vitamin D2) 1,250 mcg PO WE 05/31/22 05/31/22 [Drisdol (50,000 Iu)] Gabapentin [Neurontin] 400 mg PO QID 05/31/22 05/31/22 HYDROcodone/APAP 7.5-325MG [[place] 1 tab PO TID 05/31/22 05/31/22 7.5-325] LORazepam [Ativan] 0.5 mg PO TID 05/31/22 05/31/22 Montelukast Sodium [Singulair] 10 mg PO DAILY PRN 05/31/22 05/31/22 Previous Rx's Medication Instructions Recorded Aspirin 81 mg PO DAILY #90 tab 06/03/22 Atorvastatin Calcium [Lipitor] 80 mg PO HS #90 tablet 06/03/22 Clopidogrel [Plavix] 75 mg PO DAILY #90 tab 06/03/22 Metoprolol Succinate (ER) [Toprol 25 mg PO DAILY #90 tab 06/03/22 XL] Clindamycin [Cleocin] 150 mg PO Q6H 10 Days #40 capsule 09/04/23 Ketorolac [Toradol] 10 mg PO Q6HR #20 tab 09/04/23 Allergies Allergy/AdvReac Type Severity Reaction Status Date / Time phenazopyridine HCl Allergy Rash/Hives Verified 05/31/22 21:58 [From Pyridium] sulfamethoxazole Allergy Rash/Hives Verified 05/31/22 21:58 [From Bactrim] trimethoprim [From Bactrim] Allergy Rash/Hives Verified 05/31/22 21:58 Review of Systems ROS Statement: Those systems with pertinent positive or pertinent negative responses have been documented in the HPI. ROS Other: All systems not noted in ROS Statement are negative. Past Medical History Past Medical History: Fibromyalgia, Hypertension, Seizure Disorder Additional Past Medical History / Comment(s): chronic neck and back pain History of Any Multi-Drug Resistant Organisms: None Reported Past Surgical History: Back Surgery Additional Past Surgical History / Comment(s): LAPAROSCOPY TO REMOVE CYST FROM OVARIES. LEEP OR CONE PROCEDURE Past Anesthesia/Blood Transfusion Reactions: No Reported Reaction Past Psychological History: Anxiety Smoking Status: Current every day smoker Past Alcohol Use History: None Reported Past Drug Use History: None Reported General Exam Limitations: no limitations General appearance: alert, in no apparent distress ENT exam: Present: other (4cm abscess noted on hard palate. Multiple dental caries and broken teeth noted. ) Course Vital Signs 09/04/23 16:36 Temperature 98.6 F Pulse Rate 100 Respiratory 18 Rate Blood Pressure 170/102 O2 Sat by Pulse 99 Oximetry Medical Decision Making - Medical Decision Making Was pt. sent in by a medical professional or institution (, PA, PATIENT FINANCIAL SERVICES MANAGER, urgent care, hospital, or penitentiary...) When possible be specific @ -No Did you speak to anyone other than the patient for history (EMS, parent, family, police, friend...)? What history was obtained from this source @ -No Did you review nursing and triage notes (agree or disagree)? Why? @ -I reviewed and agree with nursing and triage notes Were old charts reviewed (outside hosp., previous admission, EMS record, old EKG, old radiological studies, urgent care reports/EKG's, penitentiary records)? Report findings @ -No old charts were reviewed Differential Diagnosis (chest pain, altered mental status, abdominal pain women, abdominal pain men, vaginal bleeding, weakness, fever, dyspnea, syncope, headache, dizziness, GI bleed, back pain, seizure, CVA, palpatations, mental health, musculoskeletal)? @ -Mouth abscess, ulcer, mass EKG interpreted by me (3pts min.). @ -None X-rays interpreted by me (1pt min.). @ -None done CT interpreted by me (1pt min.). @ -None done U/S interpreted by me (1pt. min.). @ -None done What testing was considered but not performed or refused? (CT, X-rays, U/S, labs)? Why? @ -None What meds were considered but not given or refused? Why? @ -None Did you discuss the management of the patient with other professionals (professionals i.e. , PA, PATIENT FINANCIAL SERVICES MANAGER, lab, RT, psych nurse, social media community manager, cdl a driver, teacher, credit risk officer, case management social worker)? Give summary @- No Was smoking cessation discussed for >3mins.? @ -No Was critical care preformed (if so, how long)? @ -No Were there social determinants of health that impacted care today? How? (Homelessness, low income, unemployed, alcoholism, drug addiction, transportation, low edu. Level, literacy, decrease access to med. care, fdc, rehab)? @ -No Was there de-escalation of care discussed even if they declined (Discuss DNR or withdrawal of care, Hospice)? DNR status @ -No What co-morbidities impacted this encounter? (DM, HTN, Smoking, COPD, CAD, Cancer, CVA, ARF, Chemo, Hep., AIDS, mental health diagnosis, sleep apnea, morbid obesity)? @ -None Was patient admitted / discharged? Hospital course, mention meds given and route, prescriptions, significant lab abnormalities, going to OR and other pertinent info. @ -Discharge. Upon examination there was a 4 cm abscess noted on the hard palate. Area was numbed during hurricane topical spray and cut open to drain. Patient was given IM tordaol for pain. Patient will be discharged home with PO clindamycin and ketorlac. She was advised to follow-up with a dentist /oral surgeon within the next week and to rinse her mouth with warm salt water. Patient expressed understanding. Undiagnosed new problem with uncertain prognosis? @ -No Drug Therapy requiring intensive monitoring for toxicity (Heparin, Nitro, Insulin, Cardizem)? @ -No Were any procedures done? @ -No Diagnosis/symptom? @ -Mouth abscess Acute, or Chronic, or Acute on Chronic? @ -Acute Uncomplicated (without systemic symptoms) or Complicated (systemic symptoms)? @ -Uncomplicated Side effects of treatment? @ -No Exacerbation, Progression, or Severe Exacerbation? @ -No Poses a threat to life or bodily function? How? (Chest pain, [place], [place], pneumonia, PE, COPD, DKA, ARF, appy, cholecystitis, CVA, Diverticulitis, Homicidal, Suicidal, threat to staff... and all critical care pts) @ -No Disposition Clinical Impression: Mouth abscess Disposition: HOME SELF-CARE Condition: Stable Instructions (If sedation given, give patient instructions): Abscess Incision and Drainage (ED) Additional Instructions: Please return to the Emergency Department if symptoms worsen or any other concerns. Please follow-up with a dentist or oral surgeon within the next week. Prescriptions: Clindamycin [Cleocin] 150 mg PO Q6H 10 Days #40 capsule Ketorolac [Toradol] 10 mg PO Q6HR #20 tab Is patient prescribed a controlled substance at d/c from ED?: No Referrals: Laila Mohr DO [Primary Care Provider] - 1-2 days Jt Robles DDS [STAFF PHYSICIAN] - 1-2 days Time of Disposition: 17:47
== END 2023-09-04 18:01 | disposition home or self-care (01) ==
LOC: EC 15:48
DX: K12.2 Cellulitis and abscess of mouth (principal); I10 Essential (primary) hypertension; F41.9 Anxiety disorder, unspecified; F17.200 Nicotine dependence, unspecified, uncomplicated; Z79.899 Other long term (current) drug therapy; Z88.2 Allergy status to sulfonamides; Z88.8 Allergy status to other drugs, medicaments and biological substances
CPT/HCPCS: 99283; 96372; J1885

== ENCOUNTER → 2024-12-01 | Outpatient (CLI) | payer OTHER ==
[2024-12-02 03:03] LABS: HCT 40.4 % (37.2-46.3); HGB 13.4 g/dL (12.0-15.0); MCH 30.1 pg (27.0-32.0); MCHC 33.2 g/dL (32.0-37.0); MCV 90.8 FL (80.0-97.0); Mean Platelet Volume 9.7 FL (9.5-12.2); NRBC Per 100 WBC 0 X 10*3/uL (0.00-0.01); Platelet Count 397 X 10*3/uL (140-440); RBC 4.45 X 10*6/uL (4.10-5.20); WBC 7.68 X 10*3/uL (4.50-10.00)
[2024-12-02 03:18] LABS: Blood Urea Nitrogen 10.6 mg/dL (9.0-27.0)
[2024-12-02 03:19] LABS: Carbon Dioxide 21.7 mmol/L (21.6-31.8); Chloride 108 mmol/L (96-109); Sodium 143 mmol/L (135-145)
== END | disposition home or self-care (01) ==
LOC: LABPAT 16:09
PROVIDERS: ATTEND Internal Medicine
DX: Z01.812 Encounter for preprocedural laboratory examination (principal); I25.10 Atherosclerotic heart disease of native coronary artery without angina pectoris; R07.9 Chest pain, unspecified; R06.02 Shortness of breath
CPT/HCPCS: 80051; 82565; 84520; 85027